=== PATIENT | male | born 1985 | race African-American/Black ===

== ENCOUNTER 2018-01-01 18:45 | Emergency (ER) | payer OTHER ==
[~2018-01-01] VITALS: Ht 157.5 cm; Wt 53.2 kg
[2018-01-01] MEDS ORDERED: BACTRIM,SEPT1 TABLET PO (18:58)
[2018-01-01 19:39] LABS: APPEARANCE CLEAR ((CLEAR)); BILIRUBIN NEGATIVE; BLOOD NEGATIVE; COLOR YELLOW ((YELLOW)); GLUCOSE (STRIP) NEGATIVE; KETONES NEGATIVE; LEUKOCYTES NEGATIVE; NITRITE NEGATIVE; PROTEIN (STRIP) 100; SPECIFIC GRAVITY 1.009 (1.000-1.030); UROBILINOGEN 0.2 MG/DL (0.2-1.0)
[2018-01-01 19:43] LABS: INTER. NORMALIZED RATIO 1.2
[2018-01-01 19:44] LABS: ALBUMIN 3.8 g/dL (3.2-4.8)
[2018-01-01 19:45] LABS: CHLORIDE 100 mEq/L (99-109); POTASSIUM 4.3 mEq/L (3.7-5.4); SODIUM 131 mEq/L (136-147)
[2018-01-01 19:46] LABS: PTT 30.9 SEC (25-37)
[2018-01-01 19:47] LABS: GLUCOSE 101 mg/dL (70-99); TOTAL PROTEIN 7.3 g/dL (6.4-8.3)
[2018-01-01 19:49] LABS: BASOPHIL (%) 0.6 % (0-1); EOSINOPHIL (%) 0 % (0-5); HEMOGLOBIN 11.6 G/DL (12.5-16.6); IMMATURE GRANULOCYTE (%) 3.4 % (0.0-0.7); LYMPHOCYTE COUNT 0.5 K/uL (1.0-2.8); MCH 28.8 PG (29.0-34.0); MCHC 34.1 G/DL (30.0-36.0); MCV 84.4 FL (86-99); MONOCYTE (%) 19.9 % (3-12); MONOCYTE COUNT 0.4 K/uL (0-0.8); NEUTROPHIL (%) 47.1 % (45-76); NEUTROPHIL COUNT 0.8 K/uL (1.8-6.4); PLATELET COUNT 332 K/uL (156-360); RBC DIS.WIDTH-CV 12.4 % (11.8-14.6); RBC DIS.WIDTH-SD 37.6 % (39-53); RED BLOOD COUNT 4.03 M/uL (4.00-5.50); TOTAL BILIRUBIN 0.4 mg/dL (0.0-1.0)
[2018-01-01 19:49] LABS: BACTERIA NONE SEEN /HPF; EPITHELIAL CELLS RARE /HPF; MUCUS NONE SEEN /LPF; RED BLOOD CELLS 0-5 /HPF (0-5); UCUL ADDED? NO; WHITE BLOOD CELLS 0-5 /HPF (0-5)
[2018-01-01 19:50] LABS: ALKALINE PHOSPHATASE 64 IU/L (3-129)
[2018-01-01 19:51] LABS: GFR ESTIMATE (CALCULATED) > 59 mL/min/ (58.99-99999); WHITE BLOOD COUNT 1.8 K/uL (4.1-10.2)
[2018-01-01 19:52] LABS: AST (GOT) 75 IU/L (2-34); UREA NITROGEN (BUN) 15 mg/dL (9-23)
[2018-01-01 19:53] LABS: ALT (GPT) 50 IU/L (3-49)
[2018-01-01 19:54] LABS: LIPASE 11 U/L (1.0-51.0)
[2018-01-01 20:01] LABS: TROP-I INTERPRETATION NEGATIVE; TROPONIN-I 0.01 ng/mL (0.0-0.30)
[2018-01-01 23:21] VITALS: BP 108/73
[2018-01-02 09:44] LABS: HEPATITIS B SURFACE ANTIGEN Nonreactive; HEPATITIS C ANTIBODY Nonreactive
[2018-01-02 09:46] LABS: ANTI-HEPATITIS A VIRUS (IGM) Nonreactive; ANTI-HEPATITIS B CORE (IGM) Nonreactive
== END 2018-01-01 23:36 | disposition short-term general hospital (02) ==
LOC: EME 18:45
PROVIDERS: Emergency Medicine
DX: B20 Human immunodeficiency virus [HIV] disease (principal); D70.3 Neutropenia due to infection; R50.81 Fever presenting with conditions classified elsewhere; Z87.891 Personal history of nicotine dependence
CPT/HCPCS: 71046; 80053; 80074; 81003; 83605; 83690; 84484; 85025; 85610; 85730; 87040; 99281; 99285; J0456; J0692; J2543

== ENCOUNTER 2018-01-14 09:16 | Emergency (ER) | payer OTHER ==
[~2018-01-14] VITALS: Ht 157.5 cm; Wt 64.8 kg
[~2018-01-14 09:16] MED LIST: BACTRIM,SEPT1 TABLET PO
[2018-01-14 10:22] LABS: HEMATOCRIT 34.4 % (38.0-50.0); HEMOGLOBIN 11.4 G/DL (12.5-16.6); MCH 28.4 PG (29.0-34.0); MCHC 33.1 G/DL (30.0-36.0); MCV 85.6 FL (86-99); NRBC (%) 0.3 /100 WBC (0-0); PLATELET COUNT 288 K/uL (156-360); RBC DIS.WIDTH-CV 13.4 % (11.8-14.6); RBC DIS.WIDTH-SD 41.7 % (39-53); RED BLOOD COUNT 4.02 M/uL (4.00-5.50); WHITE BLOOD COUNT 6.9 K/uL (4.1-10.2)
[2018-01-14 10:34] LABS: ALBUMIN 2.9 g/dL (3.2-4.8); CHLORIDE 100 mEq/L (99-109); SODIUM 133 mEq/L (136-147)
[2018-01-14 10:37] LABS: GLUCOSE 110 mg/dL (70-99); TOTAL PROTEIN 5.9 g/dL (6.4-8.3)
[2018-01-14 10:38] LABS: TOTAL BILIRUBIN 0.5 mg/dL (0.0-1.0)
[2018-01-14 10:40] LABS: ALKALINE PHOSPHATASE 46 IU/L (3-129); CREATININE 3.3 mg/dL (0.6-1.3); GFR ESTIMATE (CALCULATED) 28 mL/min/ (58.99-99999)
[2018-01-14 10:41] LABS: UREA NITROGEN (BUN) 34 mg/dL (9-23)
[2018-01-14 10:42] LABS: AST (GOT) 81 IU/L (2-34); DIRECT BILIRUBIN 0.2 mg/dL (0.0-0.3)
[2018-01-14 10:43] LABS: ALT (GPT) 43 IU/L (3-49)
[2018-01-14 10:44] LABS: TROP-I INTERPRETATION NEGATIVE; TROPONIN-I 0.03 ng/mL (0.0-0.30)
[2018-01-14 11:00] LABS: ABS NEUTROPHIL COUNT 4.5; ATYPICAL LYMPHOCYTE 2.6 %; EOSINOPHIL ABS CT 0.1; EOSINOPHILS 1.8 % (0-5.0); LYMPHOCYTES 21.9 % (15.0-45.0); MONOCYTES 8.8 % (0-9.0); OVALOCYTES 1+; PLAT.SUFFICIENCY ADEQUATE; POIKILOCYTOSIS 1+; SEG.NEUTROPHILS 57.9 % (46.0-76.0); SMUDGE CELLS 17.5
[2018-01-14 11:11] LABS: LIPASE 1 U/L (1.0-51.0)
[2018-01-14 12:51] LABS: APPEARANCE CLOUDY ((CLEAR)); BILIRUBIN NEGATIVE; BLOOD LARGE; COLOR AMBER ((YELLOW)); GLUCOSE (STRIP) NEGATIVE; KETONES NEGATIVE; LEUKOCYTES NEGATIVE; NITRITE NEGATIVE; PROTEIN (STRIP) >=500; SPECIFIC GRAVITY 1.016 (1.000-1.030); UROBILINOGEN 0.2 MG/DL (0.2-1.0)
[2018-01-14 12:55] LABS: BACTERIA RARE /HPF; CALCIUM OXALATE CRYSTALS 1+ /HPF; EPITHELIAL CELLS RARE /HPF; MUCUS TRACE /LPF; RED BLOOD CELLS 0-5 /HPF (0-5); UCUL ADDED? YES
[2018-01-14 15:41] VITALS: BP 92/42
== END 2018-01-14 15:41 | disposition short-term general hospital (02) ==
LOC: EME 09:16
PROVIDERS: Emergency Medicine
DX: A41.9 Sepsis, unspecified organism (principal); R50.9 Fever, unspecified; I95.9 Hypotension, unspecified; R00.0 Tachycardia, unspecified; D89.3 Immune reconstitution syndrome; B20 Human immunodeficiency virus [HIV] disease; Z87.891 Personal history of nicotine dependence
CPT/HCPCS: 71046; 80048; 80076; 81003; 83605; 83690; 83880; 84484; 85025; 87040; 87086; 93005; 99281; 99285; J1885; J2543; J2930; J3370; J7030